=== PATIENT | female | born 1980 | race Caucasian/White ===

== ENCOUNTER 2017-01-12 08:36 | Emergency (ER) | payer OTHER ==
[~2017-01-12] VITALS: Ht 165.1 cm; Wt 90.9 kg
[~2017-01-12 08:36] MED LIST: ACET50TA PO; FERR325T3 PO; IBUP80TA PO; PERCOCET PO; PRENTAB40 PO; TUMS500C PO
[2017-01-12 08:46] VITALS: BP 132/96
[2017-01-12] MEDS ORDERED: PROP1TAB29 (08:50)
[2017-01-12] MEDS ORDERED: FIOR1CAP PO (08:51)
[2017-01-12] MEDS ORDERED: BENA25CA4 PO (08:59)
[2017-01-12] MEDS ORDERED: PRED20TA PO (09:12)
[2017-01-12] MEDS ORDERED: CEPH250T PO (09:12)
== END 2017-01-12 09:19 | disposition home or self-care (01) ==
LOC: M ED 08:36
DX: R21 Rash and other nonspecific skin eruption (principal); Z91.030 Bee allergy status; F99 Mental disorder, not otherwise specified; E66.9 Obesity, unspecified

== ENCOUNTER → 2018-06-29 | Outpatient (CLI) | payer OTHER ==
[~2018-06-29] MED LIST changes: -ACET50TA PO; +BENA25CA4 PO; +CEPH250T PO; +FIOR1CAP PO; +MAPA500T2 PO; +PRED20TA PO; +PROP20TA72
[2018-06-29 12:41] LABS: ALT/SGPT 33 U/L (12-78); BILIRUBIN,TOTAL 0.4 MG/DL (0.2-1.0); BLOOD UREA NITROGEN 15 MG/DL (7-18); CALCIUM LEVEL 8.7 MG/DL (8.5-10.1); CARBON DIOXIDE LEVEL 25 MEQ/L (21-32); CHLORIDE LEVEL 106 MEQ/L (98-107); CHOLESTEROL LEVEL 157 MG/DL (<200); CHOLESTEROL RISK RATIO 3.738 (<5); CREATININE FOR GFR 0.76 MG/DL (0.55-1.30); GLOMERULAR FILTRATION RATE > 60.0 (>60); GLUCOSE, FASTING 83 MG/DL (70-100); HDL CHOLESTEROL 42 MG/DL (>40); LDL CHOLESTEROL 97 MG/DL (<100); NON-HDL-C 115 MG/DL; POTASSIUM SERUM 4.2 MEQ/L (3.5-5.1); SODIUM LEVEL 141 MEQ/L (136-145); TOTAL PROTEIN 7.1 GM/DL (6.4-8.2); TRIGLYCERIDES LEVEL 91 MG/DL (<150)
== END ==
LOC: M SMT 08:35
PROVIDERS: ATTEND Nurse Practitioner Family
DX: E66.9 Obesity, unspecified (principal); Z68.35 Body mass index [BMI] 35.0-35.9, adult; E55.9 Vitamin D deficiency, unspecified

== ENCOUNTER → 2018-08-24 | Outpatient (CLI) | payer OTHER ==
--- NOTE | 2018-08-25 02:41 | REP ---
Clinical: Left knee pain. Technique: AP, lateral, bilateral oblique and sunrise views of the left knee. Findings: Generalized age-related changes are appreciated. No overt osteoarthritic changes are identified. No acute fracture dislocation. Surrounding soft tissues are unremarkable. No effusion. Impression: Generalized age-related findings. Electronically Signed by Jacob Peña MD 08/25/2018 02:32 A
== END ==
LOC: M RAD 10:44
PROVIDERS: ATTEND Nurse Practitioner Family
DX: M25.562 Pain in left knee (principal)

== ENCOUNTER → 2018-09-07 | Outpatient (REF) | payer OTHER ==
[2018-09-07 19:24] LABS: APPEARANCE, URINE CLOUDY (CLEAR); BACTERIA, URINE AUTO NEGATIVE (NEGATIVE); BILIRUBIN, URINE AUTO NEGATIVE (NEGATIVE); BLOOD, URINE BLOOD 3+ (NEGATIVE); COLOR, URINE AMBER (YELLOW); GLUCOSE, URINE (UA) AUTO NEGATIVE (NEGATIVE); KETONE, URINE AUTO NEGATIVE (NEGATIVE); LEUKOCYTE ESTERASE, URINE AUTO 2+ (NEGATIVE); MUCUS, URINE SMALL (NEGATIVE); NITRITE, URINE AUTO POSITIVE (NEGATIVE); PROTEIN, URINE AUTO 2+ mg/dL (NEGATIVE); RBC, URINE AUTO TNTC /HPF (0-3); SPECIFIC GRAVITY URINE AUTO 1.023 (1.002-1.035); SQUAMOUS EPITHELIAL CELL UR AU 8 /HPF (0-6); WBC, URINE AUTO TNTC /HPF (0-3)
== END ==
LOC: M LAB REF 17:42
PROVIDERS: ATTEND Physician Assistant Medical
DX: N39.0 Urinary tract infection, site not specified (principal)

== ENCOUNTER → 2019-10-02 | Outpatient (CLI) | payer OTHER | LOC: M LABSMTC 10:37 | PROVIDERS: ATTEND Physician Assistant Surgical | DX: Z03.818 Encounter for observation for suspected exposure to other biological agents ruled out (principal); Z11.59 Encounter for screening for other viral diseases ==

== ENCOUNTER 2021-02-05 08:20 | Emergency (ER) | payer OTHER ==
[2021-02-05 08:20] VITALS: BP 166/93
[2021-02-05] MEDS ORDERED: SUMA25TA3 PO (08:29)
[2021-02-05] MEDS ORDERED: NABU-71 PO (08:29)
[2021-02-05] MEDS ORDERED: BACL10TA2 PO (08:29)
[2021-02-05] MEDS ORDERED: MEDR4PAK PO (11:14)
== END 2021-02-05 11:41 | disposition home or self-care (01) ==
LOC: M ED 08:20
DX: S39.012A Strain of muscle, fascia and tendon of lower back, initial encounter (principal); X58.XXXA Exposure to other specified factors, initial encounter; Y92.89 Other specified places as the place of occurrence of the external cause

== ENCOUNTER → 2024-04-05 | Outpatient (CLI) | payer OTHER ==
[~2024-04-05] MED LIST changes: +BACL10TA2 PO; +MEDR4PAK PO; +NABU-71 PO; +SUMA25TA3 PO
== END ==
LOC: M WHC 07:08
PROVIDERS: ATTEND Physician Assistant
DX: R10.2 Pelvic and perineal pain (principal)

== ENCOUNTER → 2025-04-06 | Outpatient (CLI) | payer OTHER ==
[~2025-04-06] MED LIST changes: +ISOVUE-370 76% 100 ML VIAL ONE
== END ==
LOC: M PLAIMG 08:52
PROVIDERS: ATTEND Nurse Practitioner Family
DX: R22.0 Localized swelling, mass and lump, head (principal); R51.9 Headache, unspecified
CPT/HCPCS: 70470; Q9967